=== PATIENT | female | born 1980 | race Hispanic/Latino ===

== ENCOUNTER 2017-10-05 18:39 | Emergency (ER) | payer BC ==
[2017-10-05 19:36] VITALS: BP 134/93; PULSE 69; RESP 22; TEMP 97.7; O2SAT 99
--- NOTE | 2017-10-05 20:22 | ED PDOC ---
HPI: Abdomen Time Seen by Provider: 10/05/17 19:56 Chief Complaint (Nursing): Abdominal Pain Chief Complaint (Provider): Nausea, vomiting, diarrhea Onset/Duration Of Symptoms: Hrs (x1) Quality Of Discomfort: Cramping Additional Complaint(s): Scarlett West is a 37 y/o female with a medical history of IBS, anxiety, and depression, who presents to the ED complaining of nausea with associated vomiting and diarrhea and abdominal cramping, onset just prior to arrival. Patient reports that an hour ago she ate a large amount of sushi at a new place in [place], [place] and about 20 minutes after she developed diarrhea. Patient describes the bowel movement as very large and watery; she had one episode of diarrhea. She also reports vomiting, one episode non-bloody. She denies any fever, chills, or rash. PMD: None provided Past Medical History Reviewed: Historical Data, Nursing Documentation, Vital Signs Vital Signs: Last Vital Signs Temp 97.7 F 10/05/17 19:33 Pulse 69 10/05/17 19:33 Resp 22 10/05/17 19:33 BP 134/93 H 10/05/17 19:33 Pulse Ox 99 10/05/17 20:31 - Medical History PMH: Anxiety, Depression, Gastritis - Surgical History Other surgeries: foot surgery - Family History Family History: States: Unknown Family Hx - Immunization History Hx Tetanus Toxoid Vaccination: No Hx Influenza Vaccination: No Hx Pneumococcal Vaccination: No - Home Medications Home Medications: Ambulatory Orders Medication Instructions Recorded Cephalexin [Keflex] 500 mg PO TID #21 tab 02/12/15 Ibuprofen [Motrin] 600 mg PO Q6H PRN #15 tab 02/12/15 Ondansetron ODT [Zofran ODT] 4 mg PO Q8 PRN #12 odt 10/05/17 - Allergies Allergies/Adverse Reactions: Allergies Allergy/AdvReac Type Severity Reaction Status Date / Time Sulfa (Sulfonamide Allergy RASH Verified 10/05/17 19:36 Antibiotics) Review of Systems ROS Statement: Except As Marked, All Systems Reviewed And Found Negative Constitutional: Negative for: Fever, Chills Gastrointestinal: Positive for: Nausea, Vomiting, Abdominal Pain (cramping), Diarrhea Skin: Negative for: Rash Physical Exam - Reviewed Nursing Documentation Reviewed: Yes Vital Signs Reviewed: Yes - Physical Exam Appears: Positive for: Non-toxic, No Acute Distress Head Exam: Positive for: ATRAUMATIC, NORMOCEPHALIC Skin: Positive for: Normal Color, Warm, Dry Eye Exam: Positive for: EOMI, Normal appearance, PERRL Neck: Positive for: Normal, Painless ROM, Supple Cardiovascular/Chest: Positive for: Regular Rate, Rhythm. Negative for: Murmur Respiratory: Positive for: Normal Breath Sounds. Negative for: Respiratory Distress Gastrointestinal/Abdominal: Positive for: Normal Exam, Soft. Negative for: Tenderness Back: Positive for: Normal Inspection. Negative for: L CVA Tenderness, R CVA Tenderness, Vertebral Tenderness (midline tenderness) Extremity: Positive for: Normal ROM. Negative for: Pedal Edema, Deformity Neurologic/Psych: Positive for: Alert, Oriented. Negative for: Motor/Sensory Deficits - Laboratory Results Result Diagrams: 10/05/17 20:56 10/05/17 20:56 - ECG O2 Sat by Pulse Oximetry: 99 (RA) - Progress Re-evaluation Time: 21:38 Condition: Re-examined, Improved Medical Decision Making Medical Decision Making: Time: Initial Impression: Vomiting and diarrhea Differential diagnosis incluidng but not limited to food poisoning from seafood , acute gastroenteritis Initial Plan: --CMP --Lipase --ED urine --ED urine dipstick --CBC with differential --Bentyl 10 mg PO --Pepcid 20 mg IVP --Zofran Inj 4mg IVP Scribe Attestation: Documented by Moy Barragan, acting as a scribe for Emily Peterson MD. Provider Scribe Attestation: All medical record entries made by the Scribe were at my direction and personally dictated by me. I have reviewed the chart and agree that the record accurately reflects my personal performance of the history, physical exam, medical decision making, and the department course for this patient. I have also personally directed, reviewed, and agree with the discharge instructions and disposition. Disposition - Clinical Impression Clinical Impression: Vomiting and diarrhea, Seafood poisoning - Patient ED Disposition Is Patient to be Admitted: No Doctor Will See Patient In The: Office Counseled Patient/Family Regarding: Studies Performed, Diagnosis, Need For Followup - Disposition Referrals: [facility] [Outside] Disposition: Routine/Home Disposition Time: 21:38 Condition: GOOD Additional Instructions: Drink plenty of fluids. Follow up with your PCP in 2-3 days. Prescriptions: Ondansetron ODT [Zofran ODT] 4 mg PO Q8 PRN #12 odt PRN Reason: Nausea/Vomiting Instructions: Food Poisoning
[2017-10-05 21:12] LABS: BASO % 0.4 % (0.0-2.0); CALCIUM 9.2 mg/dL (8.4-10.2); EOS # 0.5 K/uL (0.0-0.7); EOS % 6.9 % (0.0-4.0); GFR AFRICAN-AMERICAN > 60; GFR NON-AFRICAN AMERICAN > 60; LIPASE 78 U/L (23-300); LYMPH # 1.9 K/uL (1.0-4.3); LYMPH % 28.7 % (20.0-40.0); MEAN CELL VOLUME 85.4 fl (81.0-99.0); MEAN CORPUSCULAR HEMOGLOBIN 29.5 pg (27.0-31.0); MEAN CORPUSCULAR HGB CONC 34.6 g/dL (33.0-37.0); MEAN PLATELET VOLUME 9.1 fl (7.2-11.7); MONO # 0.4 K/uL (0.0-0.8); MONO % 6.5 % (0.0-10.0); NEUT # 3.9 K/uL (1.8-7.0); NEUT % 57.5 % (50.0-75.0); NRBC % 0.1 % (0.0-0.0); RBC 4.73 Mil/uL (3.80-5.20); RED CELL DISTRIBUTION WIDTH 13.7 % (11.5-14.5); WHITE BLOOD COUNT 6.8 K/uL (4.8-10.8)
[2017-10-05 21:13] LABS: ALB/GLOB RATIO 1.3 (1.0-2.1); ALBUMIN 4.1 g/dL (3.5-5.0); ALT/SGPT 30 U/L (9-52); AST/SGOT 34 U/L (14-36); BLOOD UREA NITROGEN 12 mg/dl (7-17)
== END 2017-10-05 22:11 | disposition home or self-care (01) ==
LOC: H.ER 18:39
DX: R11.2 Nausea with vomiting, unspecified (principal); T61.91XA Toxic effect of unspecified seafood, accidental (unintentional), initial encounter; Z86.59 Personal history of other mental and behavioral disorders
CPT/HCPCS: 80053; 83690; 85025; 96374; 96375; 99283; J2405